=== PATIENT | female | born 1955 | race Caucasian/White ===

== ENCOUNTER 2019-05-04 00:36 | Day surgery (SDC) | payer OTHER, SELFPAY ==
[2019-04-27 14:40] VITALS: BMI 28.5
[2019-05-04] MEDS: LACTATED RINGERS 1,000 ML 150 ML IV CONT (09:25)
[2019-05-04 09:28] VITALS: BP 179/88; PULSE 72; RESP 16; TEMP 36.6; O2SAT 99
--- NOTE | 2019-05-04 09:50 | WPDANESEPPF ---
Anes - Initial Pre Proc Eval Procedure: Operation Date: 05/04/19 10:00 Proposed Procedures p Screening Colonoscopy - Trav Baez MD Date/Time: 05/04/19 09:50 Surgeon: Trav Baez MD Pre Op Diagnosis: Neoplasm Screening/ Fam Hx Colon Ca Patient Data Age: 63 Gender: F Height: 5 ft 3 in Weight: 74 kg Last Vital Signs Temp 97.9 F 05/04/19 09:28 Pulse 72 05/04/19 09:28 Resp 16 05/04/19 09:28 BP 179/88 H 05/04/19 09:28 Pulse Ox 99 05/04/19 09:28 Allergies Allergy/AdvReac Type Severity Reaction Status Date / Time morphine Allergy Unknown RASH, Verified 05/04/19 09:13 ITCHING Home Medications Medication Instructions Recorded Confirmed Type levothyroxine [Synthroid] 100 mcg PO DAILY 04/27/19 04/27/19 History lisinopril 20 mg PO DAILY 04/27/19 04/27/19 History omeprazole 20 mg PO DAILY 04/27/19 04/27/19 History simvastatin 40 mg PO DAILY 04/27/19 05/04/19 History Patient hx anesthesia problems: none Family hx anesthesia problems: none PMFSH Past Medical History Medical History (Updated 05/04/19 @ 09:49 by Jayajy Borja MD) Hyperlipidemia Hypertension Hypothyroid Family History Family History (Updated 09/30/15 @ 23:19 by DOCTOR UNKNOWN) Mother Hypertension Family history of elevated blood lipids Family history of malignant neoplasm of breast in first degree relative Father Family history of elevated blood lipids Carcinoma of colon Family history of diabetes mellitus in first degree relative Family history of coronary artery disease Patient's father is Sibling Patient's sister is Social History Social History Smoking status: Former smoker Second hand tobacco smoke exposure: No Smoking end date: 03/04/97 Alcohol intake: current Anes - Eval Final PreProcedure Day of Procedure 05/04/19 09:50 Patient weight: normal Heart: regular rate and rhythm Lungs: clear to auscultation Airway: Mallampati scale class II Neurological: alert and oriented Last oral intake: >/= 8 hours ASA classification: II Emergent: no Anesthetic plan: proceed Anesthesia type and monitoring: general GIVS and standard monitoring Informed Consent: The patient's anesthetic plan and its attendant risks and benefits were discussed with the patient/family/POA. Questions were solicited and answers provided to the satisfaction of the patient/family/POA.
--- NOTE | 2019-05-04 09:54 | WPDGICN ---
Assessment and Plan Additional Plan This is a 63-year-old white female patient seen in evaluation at the request of Dr. Mckeon. Patient is family history is significant her father had colon cancer. Her current weight appetite bowel movements are normal. She denies any blood in her stools. She denies abdominal pain. Past medical history is significant for hypertension, hypothyroidism, elevated cholesterol, and dyspepsia. Current medications include lisinopril, omeprazole, thyroid replacement, simvastatin, and calcium. \ She has no known medical allergies. Physical exam reveals her to be alert. Vital signs stable. HEENT exam unremarkable. Lungs are clear to auscultation and percussion. Heart is without murmur or extra sounds. Abdominal exam bowel sounds are present soft nontender with no hepatosplenomegaly. Digital external rectal exam is normal. Impression 1. Family history of colon cancer in her father. Plan is for screening colonoscopy now in consider this a 5 year intervals in the future. GI Consult Note Consult date/time: 05/04/19 09:54 HPI: lEvia Beltran is a 63 year old female [facility] Past Medical History Medical History (Updated 05/04/19 @ 09:49 by Jayjay Borja MD) Hyperlipidemia Hypertension Hypothyroid Family History Family History (Updated 09/30/15 @ 23:19 by DOCTOR UNKNOWN) Mother Hypertension Family history of elevated blood lipids Family history of malignant neoplasm of breast in first degree relative Father Family history of elevated blood lipids Carcinoma of colon Family history of diabetes mellitus in first degree relative Family history of coronary artery disease Patient's father is Sibling Patient's sister is Social History Social History Smoking status: Former smoker Second hand tobacco smoke exposure: No Smoking end date: 03/04/97 Alcohol intake: current Meds Home Medications and Allergies Home Medications Medication Instructions Recorded Confirmed Type levothyroxine [Synthroid] 100 mcg PO DAILY 04/27/19 04/27/19 History lisinopril 20 mg PO DAILY 04/27/19 04/27/19 History omeprazole 20 mg PO DAILY 04/27/19 04/27/19 History simvastatin 40 mg PO DAILY 04/27/19 05/04/19 History Allergies Allergy/AdvReac Type Severity Reaction Status Date / Time morphine Allergy Unknown RASH, Verified 05/04/19 09:13 ITCHING Vital Signs Vital Signs - 24 hr 03/02/20 09:28 Temperature 36.6 C Pulse Rate 72 Respiratory Rate 16 Blood Pressure 179/88 H Pulse Oximetry 99
[2019-05-04 10:24] VITALS: BP 131/76; PULSE 65; RESP 16; O2SAT 98
[2019-05-04 10:34] VITALS: BP 135/78; PULSE 61; RESP 14; O2SAT 98
[2019-05-04 10:44] VITALS: BP 147/89; PULSE 57; RESP 13; O2SAT 99
== END 2019-05-04 10:56 | disposition home or self-care (01) ==
PROVIDERS: PCP Internal Medicine; Visit Provider Internal Medicine Gastroenterology
PROC: 0DJD8ZZ Inspection of Lower Intestinal Tract, Via Natural or Artificial Opening Endoscopic (ICD-10-PCS; CPT 45378; principal; 2019-05-04 10:00)
DX: Z12.11 Encounter for screening for malignant neoplasm of colon (principal); K64.8 Other hemorrhoids; Z80.0 Family history of malignant neoplasm of digestive organs; I10 Essential (primary) hypertension; E03.9 Hypothyroidism, unspecified; E78.5 Hyperlipidemia, unspecified; Z87.891 Personal history of nicotine dependence
CPT/HCPCS: 45378; J2704; J7120

== ENCOUNTER 2020-01-19 13:52 | Outpatient (CLI) | payer OTHER, SELFPAY ==
--- NOTE | ~2020-01-19 | XR_ITS ---
EXAMINATION: XR chest 2V EXAM DATE: 01/19/2020 14:10 INDICATION: R05 - Cough X 3 WKS, HBP, SOB . TECHNIQUE: Frontal and lateral projections of the chest obtained and reviewed. Comparison is made to prior examination from 02/28/2015. FINDINGS: Small left lower lung zone reticulonodular opacities, could be small amount of acute infect ion or postinfectious residua. This is new compared to previous examination. Consider one-month follo w-up exam to document resolution. The lungs are otherwise clear. There are no pleural effusions. Th e cardiomediastinal silhouette is within normal limits. There is no pneumothorax suspected. The bon es and soft tissues are unremarkable. IMPRESSION: No acute cardiopulmonary findings. Reviewed, dictated and finalized at location A. TECHNICIAN
== END 2020-01-19 13:53 | disposition home or self-care (01) ==
LOC: ANHIMG 13:58
PROVIDERS: PCP Internal Medicine; Visit Provider Physician Assistant
DX: R05 Cough (principal); I10 Essential (primary) hypertension; R06.02 Shortness of breath
CPT/HCPCS: 71046

== ENCOUNTER 2020-10-20 13:32 | Outpatient (CLI) | payer OTHER, SELFPAY ==
--- NOTE | ~2020-10-20 | DEXA_ITS ---
Bone Density Report Name: Elvia Beltran Age: 65 Sex: Female Ethnicity: White Date of : 1955 Indication: osteopenia; height loss; rheumatoid arthritis; postmenopausal Referring Provider: IVORY HERNANDEZ Study: Bone densitometry was performed. Exam Date: October 20, 2020 Accession number: [id number] Bone Density: Region BMD T-score Z-score Classification AP Spine (L1-L4) 0.928 -1.1 0.7 Osteopenia Femoral Neck (Left) 0.759 -0.8 0.7 Normal Total Hip (Left) 0.966 0.2 1.4 Normal Total Hip Bilateral Avg 0.957 0.1 1.4 Normal Femoral Neck (Right) 0.717 -1.2 0.3 Osteopenia Total Hip (Right) 0.946 0.0 1.3 Normal World Health Organization criteria for BMD impression classify patients as: Normal (T-score at or above -1.0), Osteopenia (T-score between -1.0 and -2.5), or Osteoporosis (T-score at or below -2.5). 10-year Fracture Risk(1): Major Osteoporotic Fracture 10% Hip Fracture 0.9% Reported Risk Factors: [place] (), Neck BMD=0.717, BMI=30.7, rheumatoid arthritis (1) FRAX(R) Version 3.08. Fracture probability calculated for an untreated patient. Fracture probability may be lower if the patient has received treatment. Previous Exams: Region Exam Age BMD T-score BMD Change BMD Change Date g/cm2 vs Baseline vs Previous AP Spine(L1-L4) 10/20/2020 65 0.928 -1.1 -0.007(-0.7%)# 0.075(8.8%)* 06/30/2016 60 0.852 -1.8 -0.082(-8.8%)# -0.082(-8.8%)# 08/01/2010 54 0.934 -1.0 Total Hip(Left) 10/20/2020 65 0.966 0.2 0.057(6.3%)# 0.073(8.1%)* 06/30/2016 60 0.894 -0.4 -0.016(-1.7%)# -0.016(-1.7%)# 08/01/2010 54 0.909 -0.3 Total Hip(Right) 10/20/2020 65 0.946 0.0 0.017(1.8%)# 0.055(6.2%)* 06/30/2016 60 0.891 -0.4 -0.038(-4.1%)# -0.038(-4.1%)# 08/01/2010 54 0.929 -0.1 *Denotes significance at 95% confidence level, LSC for AP Spine = 0.022 g/cm2, LSC for Total Hip = 0.027 g/cm2 Clinical Information Provided by Patient: Has rheumatoid arthritis Has used the following medications: Vitamin D, Calcium Patient maximum height was 63 Menopause Age: 35 Drinks caffeinated beverages Onset of menses at age 17 Number of children 4 Impression: The patient has low bone mass, based on the Right Femoral Neck T-score. The patient has an estimated ten-year risk of hip fracture of 0.9% and an estimated ten-year risk of major fracture of 10%, based on the WHO FRAX algorithm. No significant bone loss was o
--- NOTE | ~2020-10-20 | MM_ITS ---
EXAMINATION: MM screening [facility] BI w estefania HISTORY: Screening mammogram TECHNIQUE: Craniocaudal and mediolateral oblique 3-D tomosynthesis images were obtained and synthetic 2-D images were generated. CAD analysis was submitted and interpreted. COMPARISON: 06/03/2017, 06/30/2016, 06/01/2014, 05/22/2014 BREAST PARENCHYMAL COMPOSITION: There are scattered areas of fibroglandular density. FINDINGS: There is interval decrease in size of a previously characterized left breast cyst. There is no evidence of suspicious mass, calcification, or architectural distortion to suggest malignancy in either breast. There has been no suspicious interval change. IMPRESSION: 1. No mammographic evidence of malignancy. 2. Recommend routine screening mammography in one year. BI-RADS Category 2: Benign finding(s). Reviewed, dictated and finalized at location A.
== END 2020-10-20 13:33 | disposition home or self-care (01) ==
LOC: ANHIMG 13:35
PROVIDERS: PCP Internal Medicine; Visit Provider Obstetrics & Gynecology
DX: Z12.31 Encounter for screening mammogram for malignant neoplasm of breast (principal); Z78.0 Asymptomatic menopausal state; M85.89 Other specified disorders of bone density and structure, multiple sites
CPT/HCPCS: 77063; 77067; 77080

== ENCOUNTER 2021-05-01 12:52 | Emergency (ER) | payer OTHER, SELFPAY ==
--- NOTE | ~2021-05-01 | XR_ITS ---
XR elbow RT min 3V 05/01/2021 13:38 INDICATION: Right elbow pain PROCEDURE: 4 views right elbow COMPARISON: No prior studies for comparison. FINDINGS: Fracture, dislocation or subluxation is not identified. No significant joint effusion. The soft tissues appear within normal limits. No foreign bodies are identified. IMPRESSION: 1: NO ACUTE BONE OR JOINT ABNORMALITY IDENTIFIED. Reviewed, dictated and finalized at location A. HIC EDITOR
[2021-05-01 13:19] VITALS: BP 153/93; PULSE 80; RESP 18; TEMP 36.7; O2SAT 98
--- NOTE | 2021-05-01 13:30 | ED.UPPEXIN ---
HPI - Extremity Injury (Upper) General Chief Complaint: Extremity Injury, Upper Stated Complaint: work injury Time Seen by Provider: 05/01/21 13:40 Source: patient, RN notes reviewed and old records reviewed Mode of arrival: ambulatory Limitations: no limitations History of Present Illness HPI narrative: 65-year-old female [facility] of right elbow pain after fall 5 days ago. 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 Was assisted up from the floor and finished working that day. Has become more sore within the last 5 days. Right elbow bruised and slightly edematous. Reports numbness in fingers with certain movements. Right shoulder is tender with movement. Right hip is tender and sore, muscles hurt with movement flexing and extending right ankle. Has been taking Aleve. Has not applied ice. MD complaint: injury to: right, shoulder and elbow Related Data Home Medications Medication Instructions Recorded Confirmed alendronate 70 mg tablet 70 mg PO ONCE tablet 08/17/20 03/31/21 multivitamin 1 tablet PO DAILY 08/17/20 03/31/21 lisinopril 40 mg PO DAILY 05/01/21 05/01/21 Allergies Allergy/AdvReac Type Severity Reaction Status Date / Time carvedilol Allergy Severe Hives Verified 05/01/21 13:30 morphine Allergy Unknown RASH, Verified 05/01/21 13:30 ITCHING Review of Systems Review of Systems: CONSTITUTIONAL: Denies fever, chills, or sweats. EYES: Denies visual changes, redness, or discharge. ENT: Denies rhinorrhea, congestion, sore throat, or otalgia. CARDIOVASCULAR: Denies chest pain, palpitations, or edema. RESPIRATORY: Denies cough or dyspnea. GASTROINTESTINAL: Denies abdominal pain, nausea, vomiting, or diarrhea. GENITOURINARY: Denies dysuria or hematuria. SKIN: Denies rash or itching. MUSCULOSKELETAL: Right shoulder, elbow, and hip soreness. Right elbow bruising and mildly swollen. NEUROLOGIC: Denies headache, numbness, or weakness. PSYCHIATRIC: Denies anxiety or depression. All other systems reviewed are negative, except as documented in HPI. [facility] Past Medical History Medical History Acid reflux Hyperlipidemia Hypertension Hypothyroid Surgical History Surgical History H/O hernia repair H/O tubal ligation History of appendectomy [place] teeth removed Family History Family History Mother Hypertension Family history of elevated blood lipids Family history of malignant neoplasm of breast in first degree relative Father Family history of elevated blood lipids Carcinoma of colon Family history of diabetes mellitus in first degree relative Family history of coronary artery disease Patient's father is Sibling Patient's sister is Social History Social History Smoking packs per day: 4 Smoking cigarettes per day: 80.0 Years smoked: 20 Smoking pack-years: 80.00 Smoking status: Former smoker Second hand tobacco smoke exposure: No Smoking end date: 03/04/97 Alcohol intake: current Comments At the time of my signature, I reviewed and agree with the nursing past medical, surgical, social, and family history. There is no relevant family history pertinent to the patient complaint. Exam Narrative: GENERAL: This is a well-nourished, well-developed female, in no apparent distress. Pleasant, cooperative, casually dressed. HEAD: normocephalic, atraumatic. EYES: Sclera clear/white. Vision is grossly intact. EARS: External ears normal, auditory canals clear and without drainage, hearing grossly intact. NOSE: External nose normal with no obvious nasal discharge, nares without redness, no rhinorrhea. THROAT: Mucous membranes moist. N
[2021-05-01 14:07] VITALS: BP 149/86
== END 2021-05-01 14:07 | disposition home or self-care (01) ==
PROVIDERS: Emergency Provider Nurse Practitioner Family; PCP Internal Medicine
DX: S50.01XA Contusion of right elbow, initial encounter (principal); W01.0XXA Fall on same level from slipping, tripping and stumbling without subsequent striking against object, initial encounter; Y99.0 Civilian activity done for income or pay; K21.9 Gastro-esophageal reflux disease without esophagitis; E78.5 Hyperlipidemia, unspecified; I10 Essential (primary) hypertension; E03.9 Hypothyroidism, unspecified
CPT/HCPCS: 73080; 99213; G0463

== ENCOUNTER 2021-06-29 07:31 | Observation (INO) | payer OTHER, SELFPAY ==
[2021-06-29] VITALS (24 sets, daily range): BP systolic 147–202; BP diastolic 79–99; PULSE 60–80; RESP 13–20; TEMP 36.4–36.6; O2SAT 95–99; BMI 29.2
--- NOTE | 2021-06-29 | EST_ITS ---
Patient Info Name: Elvia Beltran Age: 65 years : 1955 Gender: Female Ht: 63 in Wt: 165 lbs BSA: 1.85 m2 Exam Date: 06/30/2021 11:44 AM Exam Location: [facility] Stress Patient Status: Inpatient Admit Date: 06/29/2021 Staff Ordering Physician: Latia Jasso Attending Provider: Wendy Reyes MD Exercise Technologist: Carli Hill RDCS Nurse: latia jasso np Exam Type: CA stress loly w NM Study Info Indications R07.9 - Chest pain, unspecified A regadenoson stress test was performed. Summary 1. Normal sinus rhythm - normal ECG. 2. No abnormal ST or T-wave changes following Lexiscan injection. 3. Clinically and electrocardiographically uneventful Lexiscan stress test. 4. Myocardial perfusion imaging exam to be reported by Radiology. Protocol: Lexiscan Stress ECG Details Stage: REST Duration (min): 2 min : 13 sec HR (bpm): 74 SBP (mmHg): 197 DBP (mmHg): 99 Stage: REST Duration (min): 5 min : 28 sec HR (bpm): 76 SBP (mmHg): 197 DBP (mmHg): 99 Stage: STAGE 1 Duration (min): 1 min : 0 sec HR (bpm): 101 SBP (mmHg): 197 DBP (mmHg): 99 Stage: RECOVERY Duration (min): 1 min : 0 sec HR (bpm): 109 SBP (mmHg): 185 DBP (mmHg): 97 Stage: RECOVERY Duration (min): 2 min : 0 sec HR (bpm): 102 SBP (mmHg): 185 DBP (mmHg): 97 Stage: RECOVERY Duration (min): 3 min : 0 sec HR (bpm): 94 SBP (mmHg): 174 DBP (mmHg): 98 Stage: RECOVERY Duration (min): 3 min : 10 sec HR (bpm): 94 SBP (mmHg): 174 DBP (mmHg): 98 Rest HR: 76 bpm Peak HR: 110 bpm Rest Sys BP: 197 mmHg Peak Sys BP: 185 mmHg Max Pred HR: 155 bpm % Max Pred HR: 71 % Target HR: 132 bpm Max RPP: 20,350 bpm*mmHg Termination Reason: Completed protocol Cardiac Symptoms: None Total Time: 1 min : 0 sec Rest Parra BP: 99 mmHg Peak Parra BP: 97 mmHg Total Dose: 0.4 mg Resting ECG Normal sinus rhythm - normal ECG. Stress ECG No abnormal ST or T-wave changes following Lexiscan injection. Report Signatures
--- NOTE | ~2021-06-29 | XR_ITS ---
EXAMINATION: XR chest 2V DATE: 06/29/2021 07:56 INDICATION: Left chest pain. TECHNIQUE: Frontal and lateral views of the chest were obtained. COMPARISON: Chest 2 views 01/19/2020 FINDINGS: There is mild scarring at the lung apices. No pleural effusion or pneumothorax. The heart s ize is normal. There are surgical clips in right abdomen. IMPRESSION: 1. Stable mild scarring at the lung apices. Reviewed, dictated and finalized at location A.
--- NOTE | ~2021-06-29 | NM_ITS ---
EXAMINATION: NM loly stress w perfusion DATE: 06/30/2021 12:48 INDICATION: Chest pain. TECHNIQUE: Rest images were obtained following intravenous administration of 9.9 mCi Tc99m tetrofosmi n (Myoview). The patient was infused intravenously with Lexiscan (regadenoson). Then, 32.1 mCi Tc99m tetrofosmin (Myoview) was administered intravenously, and stress images were obtained. Data was recon structed into short axis and horizontal and vertical long axis SPECT images. Gated SPECT images were also obtained. COMPARISON: Chest CT 06/29/2021 FINDINGS: There is no definite reversible or fixed perfusion abnormality to suggest ischemia or infar ction. There is no segmental wall motion abnormality. Left ventricular ejection fraction measures > 70%. IMPRESSION: 1. No definite ischemia or infarct. 2. Normal left ventricular ejection fraction measuring >70%. Reviewed, dictated and finalized at location A.
--- NOTE | ~2021-06-29 | CT_ITS ---
EXAMINATION: CTA chest DATE: 06/29/2021 20:45 INDICATION: Chest pain radiating to the back TECHNIQUE: Computed tomographic angiography (CTA) of the chest was performed with 100 mL Omnipque-350 intravenous contrast. Maximum intensity projection 3D-reconstructions of the aorta and other arterie s were constructed by the technologist on a separate workstation. The dose-length product (DLP) was 4 02.54 mGy-cm. Automated exposure control and iterative reconstruction technique were employed. COMPARISON: None. FINDINGS: The thoracic aorta is normal without aneurysm or dissection. There is moderate emphysema. T he lungs are free of acute opacities. There is no pleural effusion or pneumothorax. No pathologically enlarged thoracic lymph nodes are identified. The heart size is normal. Although not specifically ti me for evaluation of the pulmonary arteries, no pulmonary embolus is identified. There is mild thorac ic spondylosis. IMPRESSION: 1. Normal thoracic aorta without aneurysm or dissection. No acute cardiopulmonary abnormality. Reviewed, dictated and finalized at location F. IMPRESSION: 1. Normal thoracic aorta without aneurysm or dissection. No acute cardiopulmona ry abnormality.
--- NOTE | 2021-06-29 07:43 | ECG_ITS ---
Measurements Intervals [place] Rate: 73 P: 53 OR: 154 QRS: 27 QRSD: 85 T: 48 QT: 371 QTc: 410 Interpretive Statements SINUS RHYTHM NO PREVIOUS ECG AVAILABLE FOR COMPARISON Electronically Signed On 06-29-2021 20:49:00 CDT by Karina Ballard M.D.
--- NOTE | 2021-06-29 07:49 | ED.CHESTPAIN ---
HPI - Chest Pain General Chief Complaint: Chest Pain Stated Complaint: CP Time Seen by Provider: 06/29/21 07:42 Source: patient Mode of arrival: ambulatory Limitations: no limitations History of Present Illness HPI narrative: Patient is a 65-year-old female complaining of chest pain, midsternal, was 8 out of 10, currently down to 2 out of 10, pressure, radiating to her jaw that started this morning while walking. Patient denies any shortness of breath, abdominal pain, nausea, vomiting, diaphoresis, fever or chills. Related Data Home Medications Medication Instructions Recorded Confirmed alendronate 70 mg tablet 70 mg PO WEEKLY tablet 08/17/20 05/01/21 multivitamin 1 tablet PO DAILY 08/17/20 05/01/21 lisinopril 40 mg PO DAILY 05/01/21 05/01/21 Allergies Allergy/AdvReac Type Severity Reaction Status Date / Time carvedilol Allergy Severe Hives Verified 05/01/21 13:30 morphine Allergy Unknown RASH, Verified 05/01/21 13:30 ITCHING Review of Systems Review of Systems: All systems reviewed & are unremarkable except as noted in HPI and below Constitutional: Constitutional: Denies body ache(s), Denies chills, Denies excessive sweating, Denies fatigue, Denies fever(s), Denies headache(s), Denies lethargy, Denies malaise, Denies weakness and Denies weight loss Eyes: Eyes: Denies blurry vision, Denies change in vision and Denies loss of vision ENT: Denies dizziness, Denies ear discharge, Denies headache(s), Denies lip swelling, Denies epistaxis, Denies nasal congestion, Denies neck pain, Denies throat swelling and Denies tongue swelling Cardiovascular: Cardiovascular: Denies diaphoresis, Denies rapid heart rate, Denies edema, Denies irregular heart rhythm, Denies lightheadedness, Denies palpitations, Denies dyspnea and Denies dyspnea on exertion Respiratory: Respiratory: Denies chest congestion, Denies cough, Denies hemoptysis, Denies dyspnea and Denies dyspnea on exertion Gastrointestinal: Gastrointestinal: Denies abdominal pain, Denies melena, Denies hematochezia, Denies diarrhea, Denies nausea, Denies vomiting and Denies hematemesis Musculoskeletal: Musculoskeletal: Denies abnormal gait, Denies deformity, Denies joint swelling, Denies limited range of motion, Denies neck pain and Denies numbness Neurologic: Denies Abnormal speech present, Denies abnormal gait, Denies confusion, Denies dizziness, Denies headache(s), Denies focal weakness, Denies loss of vision, Denies numbness, Denies Other visual disturbances, Denies Sensory deficit (Neuro) and Denies weakness Psychiatric: Psychiatric: Denies confusion, Denies depression, Denies auditory hallucinations, Denies homicidal ideation and Denies suicidal ideation Endocrine: Endocrine: Denies cold intolerance, Denies excessive sweating, Denies fatigue, Denies heat intolerance and Denies palpitations Hematologic/Lymphatic: Hematologic/Lymphatic: Denies easy bleeding and Denies easy bruising Allergic/Immunologic: Allergic/Immunologic: Denies lip swelling, Denies throat swelling and Denies tongue swelling PMFSH Past Medical History Medical History Acid reflux Hyperlipidemia Hypertension Hypothyroid Surgical History Surgical History H/O hernia repair H/O tubal ligation History of appendectomy [place] teeth removed Family History Family History Mother Hypertension Family history of elevated blood lipids Family history of malignant neoplasm of breast in first degree relative Father Family history of elevated blood lipids Carcinoma of colon Family history of diabetes mellitus in first degree relative Family history of coronary artery disease Patient's father is Sibling Patient's sister is Social History Social History (Reviewed 06/29/21 @ 07:55 by Koby Tsang
[2021-06-29 07:53] LABS: Basophils Absolute Auto 0.1 K/mm3 (0.0-0.1); Basophils Percent Auto 1.1 % (0.2-1.2); Eosinophils Absolute Auto 0.2 K/mm3 (0-0.3); Eosinophils Percent Auto 2.7 % (0-4.4); Hematocrit 42.6 % (37.0-47.0); Hemoglobin 14.2 g/dL (12.0-15.0); Immature Granulocyte Absolute 0.02 K/mm3 (0.00-0.031); Immature Granulocyte Percent A 0.4 % (0-0.5); Lymphocytes Absolute Auto 1.82 K/mm3 (0.9-3.2); Lymphocytes Percent Auto 32.7 % (18.3-44.2); Mean Corpuscular HGB Conc 33.3 g/dl (32-36); Mean Corpuscular Hemoglobin 30.9 pg (26-34); Mean Corpuscular Volume 92.6 fl (80-100); Mean Platelet Volume 9.8 fl (7.4-10.4); Monocytes Absolute Auto 0.5 K/mm3 (0.1-0.6); Monocytes Percent Auto 8.3 % (2.6-8.5); Neutrophils Absolute Auto 3.1 K/mm3 (1.3-6.7); Neutrophils Percent Auto 54.8 % (45.5-73.1); Platelet Count Result 231 k/mm3 (150-375); Red Cell Distribution Width 12.7 % (11.5-14.5); White Blood Count 5.6 K/mm3 (4.5-10.0)
[2021-06-29] MEDS: ASPIRIN 81 MG CHEWABLE TABLET 324 MG PO (08:02)
[2021-06-29 08:07] LABS: Alanine Aminotransferase 20 U/L (4-35); Albumin Level 4.6 g/dL (3.5-5.1); Alkaline Phosphatase 92 U/L (38-126); Anion Gap 6 mmol/L (8-16); Aspartate Amino Transferase 26 U/L (14-36); Bilirubin,Total 0.9 mg/dL (0.2-1.3); Blood Urea Nitrogen 17 mg/dL (7-17); Carbon Dioxide 27 mmol/L (22-30); Chloride 105 mmol/L (98-107); Estimated CRCL calculation 59 ml/min; Estimated Glomerular Filt Rate > 60; Glucose 97 mg/dL (65-110); Lipase 88 U/L (23-300); Sodium 138 mmol/L (137-145)
[2021-06-29 08:19] LABS: Troponin I < 0.012 ng/mL (0.000-0.034)
[2021-06-29 08:24] LABS: Prothrombin Time 13.2 Seconds (11.1-14.7)
[2021-06-29 08:26] LABS: Partial Thromboplastin Time 24.3 SECONDS (22.3-36.8)
[2021-06-29] MEDS: NITROGLYCERIN OINTMENT 1 INCH DOSE TRANSDERM (09:52)
[2021-06-29 10:55] LABS: Troponin I < 0.012 ng/mL (0.000-0.034)
--- NOTE | 2021-06-29 11:21 | PC.NURSE ---
Removed nitro paste. Patient reports headache, denies any chest pain.
--- NOTE | 2021-06-29 11:51 | ADMGEN ---
This patient, Elvia Beltran, was admitted to 3 Medical Room 340-01. Patient/family oriented to hospital policies and general routines including ID bracelet, bed and alarms, visiting hours, pain management, procedures, bathroom and other care routines, personal items, smoking policy, room service/diet, and visiting hours. Information on how to activate the Rapid Response Team has been discussed. Patient/Family are encouraged to report perceived risks to care and to ask questions if they do not understand what they are told or what they should do.
--- NOTE | 2021-06-29 13:45 | PM.IMHP ---
H&P: HPI History of Present Illness Date/Time: 06/29/21 13:45 <Kati Arzate PA-C - Last Filed: 06/29/21 20:16> Chief Complaint: Chest pain. <Kati Arzate PA-C - Last Filed: 06/29/21 20:16> Narrative: This is a very pleasant 65-year-old female with hypertension, dyslipidemia, hypothyroidism, and gastroesophageal reflux disease who presented to the emergency department from home for evaluation of chest pain. She has been unusually tired and fatigued the last several months and initially she thought perhaps it was related to anemia so she started taking her iron supplementation again within the last week or so. At work yesterday she fell asleep while sitting in the break room which is highly unusual for her. 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 Associated symptoms included lightheadedness, anxiety, sweats, and mild shortness of breath. She had never had similar symptoms in the past and after speaking with the school nurse she came in for evaluation. Blood pressure was high on arrival (202/99) which is atypical for her however she does admit that she was quite anxious at that time. EKG was personally reviewed and showed a sinus rhythm with normal axis and no acute ST segment changes. Her initial troponin was negative though given her risk factor she is being admitted overnight. At the time my evaluation she endorses intermittent aching in her shoulders but nothing significant. She has no history of coronary artery disease and reports having a negative stress test done about 12 years ago after her sister from an acute DC at age of 45. The patient's father also had history of coronary artery disease in his early 50s. <Kati Arzate PA-C - Last Filed: 06/29/21 20:16> Review of Systems Review of Systems: Twelve systems were reviewed. No syncope or near syncope. She does get hot flashes and occasional sweats with that. No recent cold or flu symptoms. No history of or concerns for sleep apnea though she admits that she has not been sleeping well recently. She denies significant snoring. has not noticed any apneic episodes. She does wake up at times with very odd, vivid dreams. No pleuritic pain or palpitations. No orthopnea, PND, or lower extremity edema. She denies nausea and vomiting. Except as documented, all other systems were reviewed and are negative. <Kati Arzate PA-C - Last Filed: 06/29/21 20:16> [facility] Past Medical History Medical History: Medical History (Updated 06/29/21 @ 20:12 by Kati Arzate PA-C) Gastroesophageal reflux disease Hyperlipidemia Hypertension Hypothyroidism <Kati Arzate PA-C - Last Filed: 06/29/21 20:16> Surgical History Surgical History: Surgical History (Updated 06/29/21 @ 20:12 by Kati Arzate PA-C) History of appendectomy History of benign breast biopsy History of endometrial ablation History of tubal ligation History of ventral hernia repair History of wisdom tooth extraction <Kati Arzate PA-C - Last Filed: 06/29/21 20:16> Family History Family History: Family History Mother Family history of elevated blood lipids Family history of malignant neoplasm of breast in first degree relative Hypertension Father Family history of elevated blood lipids Family history of diabetes mellitus in first degree relative Patient's father is Family history of coronary artery disease Carcinoma of colon Sibling Patient's sister is Heart attack <Kati Arzate PA-C - Last Filed: 06/29/21 20:16> Social History Social History: Social History (Updated 06/29/21 @ 20
[2021-06-29 14:12] LABS: Troponin I < 0.012 ng/mL (0.000-0.034)
--- NOTE | 2021-06-29 14:40 | PM.CNCAR ---
Assessment and Plan Assessment and plan (1) Chest pain: Code(s): R07.9 - Chest pain, unspecified <Olivia CarreraLibby LIDYA Jasso - Last Filed: 06/29/21 15:54> Status: Acute <Olivia RiverLIDYA solomon - Last Filed: 06/29/21 15:54> Assessment and Plan: Episode of neck/shoulder pain with some radiation to her chest that occurred this morning while she was at work. Her chest pain is atypical. No objective evidence of ACS with negative biomarkers and EKG showing no signs of acute ischemia. Probably noncardiac chest pain. However, she does have some risk factors for coronary artery disease. We will proceed with a Lexiscan stress test in the morning to rule out any ischemia <LIDYA Hyde - Last Filed: 06/29/21 15:54> (2) Hypertension: Code(s): I10 - Essential (primary) hypertension <LIDYA Hyde - Last Filed: 06/29/21 15:54> Status: Chronic <LIDYA Hyde - Last Filed: 06/29/21 15:54> Assessment and Plan: Above goal. Will add amlodipine <LIDYA Hyde - Last Filed: 06/29/21 15:54> (3) Hyperlipidemia: Code(s): E78.5 - Hyperlipidemia, unspecified <LIDYA Hyde - Last Filed: 06/29/21 15:54> Status: Acute <LIDYA Hyde - Last Filed: 06/29/21 15:54> Assessment and Plan: On statin. 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 She felt very dizzy and slid down the wall and sat. She was profusely diaphoretic and and also complained of some shortness of breath. After about 15 minutes the intense discomfort subsided but there was more persistent tightness and bad heartburn in the substernal region radiating to the back. When she went to see the school nurse her diastolic blood pressure was 130 and the nurse insisted she come to the emergency room. In general her blood pressures been well controlled and she has been compliant with her medications. O: Physical exam: BP 202/99 on admission, now 147/79 mmHg General: Sitting in bed, no distress SHEENT: Extraocular muscles intact Cardiac: Regular rate and rhythm, no murmurs or gallops Lungs: Distant breath sounds, clear to auscultation, no respiratory distress Abdomen: Soft and nontender Extremities: No edema, intact pedal pulses Skin: No lesions noted. Musculoskeletal: Some tenderness of the right trapezius area Neurologic: Alert and oriented, moved all extremities Psychiatric: Normal affect EKG personally reviewed, normal sinus rhythm and no ischemia Chest x-ray also personally reviewed, normal appearing aorta, normal heart size Troponins were normal Assessment: Atypical chest pain. Agree with nurse practitioner Louisa's assessment and plan. However, I think the patient's symptoms are also consistent with aortic dissection which is unlikely but we should to evaluate further Uncontrolled hypertension Plan: CT of the chest to rule out aortic dissection Lexiscan tomorrow Increase blood pressure meds I spent 25 minutes evaluating the patient, her EMR, and counseling the patient and provided a substantial input into her care. Otto Ballard MD <Karina Ballard MD - Last Filed: 06/29/21 20:21> History of Present Illness History of Present Illness Consult date/time: 06/29/21 14:40 Ms. Beltran Is a 65-year-old female with a medical history of hypertension, hyperlipidemia GERD, and she is a former smoker. She presented to the emergency department with a complaint of neck and jaw pain that occurred while she was at work this morning. Speedy
--- NOTE | 2021-06-29 20:31 | PCDIET ---
pt transport to radiology via wheelchair at this time. Consent signed and given to transporter.
--- NOTE | 2021-06-29 20:45 | PC.NURSE ---
pt return from CT.
[2021-06-29] MEDS: SIMVASTATIN 20 MG TABLET 40 MG PO (21:05)
[2021-06-30] VITALS (7 sets, daily range): BP systolic 149–182; BP diastolic 70–88; PULSE 61–95; RESP 18; TEMP 36.1; O2SAT 97
[2021-06-30] MEDS: LEVOTHYROXINE SODIUM 100 MCG TABLET PO (05:58)
[2021-06-30 06:03] LABS: Anion Gap 8 mmol/L (8-16); Blood Urea Nitrogen 15 mg/dL (7-17); Calcium 9.1 mg/dL (8.4-10.2); Carbon Dioxide 25 mmol/L (22-30); Chloride 104 mmol/L (98-107); Estimated CRCL calculation 59 ml/min; Estimated Glomerular Filt Rate > 60; Glucose 104 mg/dL (65-110); Magnesium 2.3 mg/dL (1.6-2.3); Potassium 4.3 mmol/L (3.4-5.0); Sodium 137 mmol/L (137-145)
[2021-06-30] MEDS: lisinopriL 20 MG TABLET 40 MG PO (08:17)
[2021-06-30] MEDS: PANTOPRAZOLE 40 MG TABLET PO (08:18)
[2021-06-30] MEDS: FERROUS SULFATE 324 MG TABLET PO (08:18)
[2021-06-30] MEDS: MULTIVITAMINS THERAPEUTIC TAB (*BKC) 1 TABLET PO (08:18)
[2021-06-30] MEDS: amLODIPine BESYLATE 5 MG TABLET PO (08:18)
[2021-06-30] MEDS: ACETAMINOPHEN 325 MG TABLET 650 MG PO (09:36)
--- NOTE | 2021-06-30 13:11 | PM.DS ---
DS: Admitting Diagnosis Discharge Date 06/30/2021 Admitting Diagnosis Chest pain DS: Discharge Diagnosis Discharge Diagnosis (1) Chest pain: Code(s): R07.9 - Chest pain, unspecified Status: Acute Assessment and Plan: She has rule out for acute coronary syndrome by serial troponins in her initial EKG showed no findings suspicious for ischemia. Given her risk factors and family history, stress test has been ordered for a.m. (2) Hypertension: Code(s): I10 - Essential (primary) hypertension Status: Chronic Assessment and Plan: Blood pressure was 202/99 arrival to the ER but she reports being very anxious at that time. Her numbers have improved though remains somewhat elevated. For now will continue her antihypertensives including amlodipine and lisinopril, and make adjustments accordingly depending on how she trends. (3) Hyperlipidemia: Code(s): E78.5 - Hyperlipidemia, unspecified Status: Acute Assessment and Plan: Continue simvastatin; LFTs within normal limits. (4) Hypothyroidism: Code(s): E03.9 - Hypothyroidism, unspecified Status: Acute Assessment and Plan: Continue levothyroxine and check TSH. (5) Gastroesophageal reflux disease: Code(s): K21.9 - Gastro-esophageal reflux disease without esophagitis Status: Acute Assessment and Plan: No acute issues. Continue pantoprazole. DS: Summary Hospital Course Reason for hospitalization: Chief Complaint: Chest pain. <Kati Arzate PA-C - Last Filed: 06/29/21 20:16> Narrative: This is a very pleasant 65-year-old female with hypertension, dyslipidemia, hypothyroidism, and gastroesophageal reflux disease who presented to the emergency department from home for evaluation of chest pain. She has been unusually tired and fatigued the last several months and initially she thought perhaps it was related to anemia so she started taking her iron supplementation again within the last week or so. At work yesterday she fell asleep while sitting in the break room which is highly unusual for her. 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 Associated symptoms included lightheadedness, anxiety, sweats, and mild shortness of breath. She had never had similar symptoms in the past and after speaking with the school nurse she came in for evaluation. Blood pressure was high on arrival (202/99) which is atypical for her however she does admit that she was quite anxious at that time. EKG was personally reviewed and showed a sinus rhythm with normal axis and no acute ST segment changes. Her initial troponin was negative though given her risk factor she is being admitted overnight. At the time my evaluation she endorses intermittent aching in her shoulders but nothing significant. She has no history of coronary artery disease and reports having a negative stress test done about 12 years ago after her sister from an acute [place] at age of 45. The patient's father also had history of coronary artery disease in his early 50s. Hospital Course: 65-year-old female presented with chest pain seen by cardiology suspect atypical chest pain as patient 3 sets of cardiac enzymes are negative [place], there are no acute changes on EKG, to further evaluate patient had a Lexiscan test for essentially normal, patient is clinically stable will discharge the patient today Status at Discharge Functional status at discharge: independent ambulation Overall status at discharge: patient is back to baseline Time Spent with Patient Time attestation: Total time spent providing and/or coordinating discharge services: Patient was seen and examined at the time of the discharge Condition at discha
--- NOTE | 2021-06-30 13:53 | PM.PNCARD ---
Progress Note: A&P Assessment and Plan (1) Chest pain: Code(s): R07.9 - Chest pain, unspecified Status: Acute Assessment and Plan: Episode of neck/shoulder pain with some radiation to her chest that occurred this morning while she was at work. Her chest pain is atypical. No objective evidence of ACS with negative biomarkers and EKG showing no signs of acute ischemia. Probably noncardiac chest pain. Lexiscan stress test performed this morning which did not show and ischemia or infarct, EF 70%. OK for discharge from a cardiac standpoint. (2) Hypertension: Code(s): I10 - Essential (primary) hypertension Status: Chronic Assessment and Plan: Amlodipine added. Medications can be further adjusted by PCP. (3) Hyperlipidemia: Code(s): E78.5 - Hyperlipidemia, unspecified Status: Acute Assessment and Plan: On statin. Subjective Date/time seen: 06/30/21 13:53 Cardiology follow up for chest pain Feels fine today. No recurrence of chest pain. Only complaint is a headache. Review of Systems Constitutional: Constitutional: Reports excessive sweating (hot flashes ), Denies fatigue, Denies headache(s), Denies lethargy and Denies weakness Eyes: Eyes: Denies blurry vision and Denies change in vision ENT: Reports Normal hearing present, Denies headache(s), Denies lip swelling and Denies neck pain Cardiovascular: Cardiovascular: Denies chest pain, Denies diaphoresis, Denies pedal edema, Denies leg edema, Denies lightheadedness, Denies palpitations, Denies dyspnea and Reports dyspnea on exertion Respiratory: Respiratory: Denies cough, Denies dyspnea and Reports dyspnea on exertion Gastrointestinal: Gastrointestinal: Denies abdominal pain, Denies constipation and Denies diarrhea Genitourinary: Genitourinary: Denies hematuria, Denies dysuria and Denies urinary urgency Musculoskeletal: Musculoskeletal: Denies back pain, Denies myalgias, Denies joint swelling and Denies neck pain Integumentary/Breasts: Skin/Breast: Reports dry skin and Reports pruritus Neurologic: Reports Normal hearing present, Denies headache(s) and Denies weakness Psychiatric: Psychiatric: Denies anxiety and Denies depression Endocrine: Endocrine: Reports excessive sweating (hot flashes ), Denies fatigue, Denies flushing and Denies palpitations Hematologic/Lymphatic: Hematologic/Lymphatic: Denies easy bleeding and Denies easy bruising Allergic/Immunologic: Allergic/Immunologic: Denies GI upset with certain foods and Denies lip swelling Exam Const: General: comfortable and no acute distress HENMT: Head: normal to inspection Face and sinus: normal facial exam Mouth: Yes Normal oral and palatal mucosa present Eyes: General: appearance normal, both eyes and all related structures Pupils: Equal, round and reactive pupils present Neck: Neck: supple and no JVD Other: normal carotid upstrokes bilaterally Resp: Effort & Inspection: normal respiratory effort Auscultation: clear to auscultation bilaterally Cardio: Rate: regular rate Rhythm: regular rhythm Heart sounds: no murmurs GI: Auscultation: normal bowel sounds Skin: General skin exam: normal color Wounds: no wounds noted Neuro: Cranial nerves: Yes Equal, round and reactive pupils present and Yes Normal hearing present Cognition (Neuro): normal cognition Extrem: General: normal to inspection, no edema and no pedal edema Psych: Mental Status: mental status grossly normal Objective Data Vital Signs Vital Signs: Vital Signs - 24 hr 06/29/21 19:17 06/29/21 20:00 06/30/21 00:00 Temperature 36.6 C Pulse Rate 66 73 61 Respiratory Rate 18 Blood Pressure 147/79 H Pulse Oximetry 97 06/30/21 04:22 06/30/21 05:58 06/30/21 08:00 Temperature 36.1 C L Pulse Rate 64 68 67 Respiratory Rate 18 Blood Pressure 149/88 H Pulse Oximetry 97 06/30/21 08:22 06/30/21 10:35 06/30/21 12:00 Temperature Pulse Rate 95
== END 2021-06-30 13:30 | disposition home or self-care (01) ==
LOC: ANHED 10:20 → ANH3MED 14:46
PROVIDERS: Physician Assistant; Admitting Provider Internal Medicine; Emergency Provider Emergency Medicine; PCP Internal Medicine; Visit Provider Family Medicine
DX: R07.9 Chest pain, unspecified (principal); K21.9 Gastro-esophageal reflux disease without esophagitis; E78.5 Hyperlipidemia, unspecified; I10 Essential (primary) hypertension; E03.9 Hypothyroidism, unspecified; Z87.891 Personal history of nicotine dependence
CPT/HCPCS: 36415; 71046; 71275; 78452; 80048; 80053; 83690; 83735; 84443; 84484; 85025; 85610; 85730; 93005; 93017; 99285; A9270; A9502; G0378; J2785; Q9967

== ENCOUNTER 2022-03-14 13:59 | Outpatient (CLI) | payer MEDICARE, SELFPAY ==
--- NOTE | ~2022-03-14 | MM_ITS ---
EXAMINATION: MM screening [facility] BI w estefania HISTORY: Screening mammogram TECHNIQUE: Craniocaudal and mediolateral oblique 3-D tomosynthesis images were obtained and synthetic 2-D images were generated. CAD analysis was submitted and interpreted. COMPARISON: 10/20/2020 bilateral screening mammogram 06/03/2017 diagnostic BREAST PARENCHYMAL COMPOSITION: There are scattered areas of fibroglandular density. FINDINGS: Occasional benign calcifications. Stable approximately 8.5 mm circumscribed low-density [place] consistent with cyst in the posterior outer mid left breast. Similar circumscribed low density 7 .5 mm probable cyst in the mid inner right breast. There are is no evidence of suspicious mass, calcification, or architectural distortion to suggest ma lignancy in either breast. There has been no suspicious interval change. IMPRESSION: 1. No mammographic evidence of malignancy. 2. Recommend routine screening mammography in one year. BI-RADS Category 2: Benign finding(s). Reviewed, dictated and finalized at location A. OPERATOR
== END 2022-03-14 14:00 | disposition home or self-care (01) ==
LOC: ANHIMG 14:02
PROVIDERS: PCP Internal Medicine; Visit Provider Obstetrics & Gynecology
DX: Z12.31 Encounter for screening mammogram for malignant neoplasm of breast (principal)
CPT/HCPCS: 77063; 77067

== ENCOUNTER 2024-07-07 11:59 | Outpatient (CLI) | payer MEDICARE, SELFPAY ==
--- NOTE | ~2024-07-07 | MM_ITS ---
EXAMINATION: MM screening [facility] BI w estefania HISTORY: Screening TECHNIQUE: Craniocaudal and mediolateral oblique 3-D tomosynthesis images were obtained and synthetic 2-D images were generated. CAD analysis was submitted and interpreted. COMPARISON: Comparison to multiple prior studies sequentially, with oldest reviewed study dated 06/30. BREAST PARENCHYMAL COMPOSITION: Not dense: There are scattered areas of fibroglandular density. FINDINGS: There are scattered bilateral obscured breast masses. There is no evidence of suspicious ma ss, calcification, or architectural distortion to suggest malignancy in either breast. There has been no suspicious interval change. There are benign bilateral breast calcifications. No architectural di stortion. IMPRESSION: 1. Small scattered bilateral obscured breast masses. 2. Additional mammographic views and possible breast ultrasound are recommended. BI-RADS Category 0: Incomplete: Needs additional imaging evaluation. Reviewed, dictated and finalized at location A. IMPRESSION: 1. Small scattered bilateral obscured breast masses. 2. Additional mammographic views and possible breast ultrasound are recommended . BI-RADS Category 0: Incomplete: Needs additional imaging evaluation.
== END 2024-07-07 12:00 | disposition home or self-care (01) ==
LOC: MICIMG 12:03
PROVIDERS: PCP Student in an Organized Health Care Education/Training Program; Visit Provider Student in an Organized Health Care Education/Training Program
DX: Z12.31 Encounter for screening mammogram for malignant neoplasm of breast (principal); R92.8 Other abnormal and inconclusive findings on diagnostic imaging of breast
CPT/HCPCS: 77063; 77067

== ENCOUNTER 2024-08-03 07:26 | Outpatient (CLI) | payer MEDICARE, SELFPAY ==
--- NOTE | ~2024-08-03 | MMUS_ITS ---
EXAMINATION: MM diagnostic [facility] BI w estefania, US breast BI complete HISTORY: Abnormal mammogram. TECHNIQUE: Additional 3-D tomosynthesis images of the breasts were performed and synthetic 2-D images were generated. CAD analysis was submitted and interpreted. High resolution bilateral complete breas t ultrasound was performed. COMPARISON: Comparison to multiple prior studies sequentially, with oldest reviewed study dated 06/30. BREAST PARENCHYMAL COMPOSITION: Dense: The breasts are heterogeneously dense, which may obscure small masses FINDINGS: MAMMOGRAPHIC FINDINGS: There are clustered nodules medially in the right breast. There is a cluster of masses in the lower i nner quadrant and also in the mid central aspect of the right breast, middle third. Clustered nodules in the subareolar location of the left breast are less apparent with spot compression views. Additio christiano asymmetries in the upper outer quadrant of the left breast are less apparent, likely superimpos ed fibroglandular tissue. ULTRASOUND: Complete US of all 4 quadrants of the breast/s and retroareolar region was reviewed. Right breast: At 2:00, near the areola there is a 9 mm cyst. At 6:00 there is a cluster of microcysts . At 10:00, 5 cm from the nipple there is a 7 mm cyst. Left breast: There are mildly dilated subareolar ducts of the left breast. No suspicious masses in ei ther breast to suggest malignancy. IMPRESSION: 1. No evidence for malignancy in either breast. Benign findings. 2. Routine yearly screening mammogram and regular clinical breast examination are recommended. BI-RADS Category 2: Benign finding(s). Reviewed, dictated and finalized at location A. IMPRESSION: 1. No evidence for malignancy in either breast. Benign findings. 2. Routine yearly screening mammogram and regular clinical breast examination a re recommended. BI-RADS Category 2: Benign finding(s).
== END 2024-08-03 07:27 | disposition home or self-care (01) ==
LOC: MICIMG 07:27
PROVIDERS: PCP Student in an Organized Health Care Education/Training Program; Visit Provider Student in an Organized Health Care Education/Training Program
DX: R92.8 Other abnormal and inconclusive findings on diagnostic imaging of breast (principal)
CPT/HCPCS: 76641; 77062; 77066; G0279

== ENCOUNTER 2025-02-23 13:30 | Outpatient (CLI) | payer MEDICARE, SELFPAY ==
--- NOTE | ~2025-02-23 | DEXA_ITS ---
Bone Density Report Name: VALARIE GIRON Age: 69 Sex: Female Ethnicity: White Date of : 1955 Indication: osteopenia; rheumatoid arthritis; Referring Provider: MADELYN, MAITE Sutherland Study: Bone densitometry was performed. Exam Date: February 23, 2025 Accession number: [id number] Bone Density: Region BMD T-score Z-score Classification AP Spine(L1-L4) 0.810 -2.2 -0.1 Osteopenia Femoral Neck (Left) 0.716 -1.2 0.6 Osteopenia Total Hip (Left) 0.883 -0.5 1.0 Normal Femoral Neck (Right) 0.671 -1.6 0.2 Osteopenia Total Hip (Right) 0.895 -0.4 1.1 Normal Total Hip Mean 0.889 -0.5 1.1 Normal World Health Organization criteria for BMD impression classify patients as: Normal (T-score at or above -1.0), Osteopenia (T-score between -1.0 and -2.5), or Osteoporosis (T-score at or below -2.5). 10-year Fracture Risk(1): Major Osteoporotic Fracture 13% Hip Fracture 2.0% Reported Risk Factors: [place] (), Neck BMD=0.671, BMI=31.2, rheumatoid arthritis (1) FRAX(R) Version 3.08. Fracture probability calculated for an untreated patient. Fracture probability may be lower if the patient has received treatment. Previous Exams: -- Region Exam Age BMD T-score BMD Change BMD Change Date g/cm2 vs Baseline vs Previous -- AP Spine (L1-L4) 02/23/2025 69 0.810 -2.2 -12.7%* -12.7%* 10/20/2020 65 0.928 -1.1 Total Hip(Left) 02/23/2025 69 0.883 -0.5 -8.6%* -8.6%* 10/20/2020 65 0.966 0.2 Total Hip(Right) 02/23/2025 69 0.895 -0.4 -5.4%* -5.4%* 10/20/2020 65 0.946 0.0 -- *Denotes significance at 95% confidence level, LSC for AP Spine = 0.022 g/cm2, LSC for Total Hip = 0.027 g/cm2 Clinical Information Provided by Patient: Has rheumatoid arthritis Has used the following medications: Vitamin D, Calcium Patient maximum height was 63 Menopause Age: 35 No regular weight bearing exercise Drinks caffeinated beverages Onset of menses at age 16 Number of children 2 Impression: The patient has low bone mass, based on the Total Spine T-score. The patient has an estimated ten-year risk of hip fracture of 2% and an estimated ten-year risk of major fracture of 13%, based on the WHO FRAX algorithm. The BMD for the AP Spine (L1-L4) decreased, changing by -12.7% since the last DXA exam. The BMD for the Total Hip(Left) decreased, changing by -8.6% since the last DXA exam. The BMD for the Total Hip(Right) decreased, changing by -5.4% since the last DXA exam. Discussion: BONE DENSITY IS LOW AT ONE OR MORE SKELETAL SITES. This patient's lowest T-score is low at one or more skeletal sites. It meets the World Health Organization's (WHO) criteria for ?low bone mass? (T-score between -1.0 and -2.5). The patient's 10-year risk of fracture as calculated by FRAX is less than the threshold where pharmacological therapy is recommended by the National Osteoporosis Foundation (NOF). However, all treatment decisions require clinical judgment and consideration of individual patient factors, including patient preferences, comorbidities, previous drug use, risk factors not captured in the FRAX model (e.g., frailty, falls, vitamin D deficiency, increased bone turnover, interval significant decline in bone density) and possible under or overestimation of fracture risk by FRAX. The patient should follow a healthful lifestyle (good nutrition with adequate calcium and vitamin D, and appropriate weight-bearing exercise). Follow-Up: Consider repeating this study in 2 years to reassess this patient's status, or sooner if there is some new clinical indication. Reported by: BRONSON on 02/23/2025 2:07:00 PM. Reviewed, dictated and finalized at location A.
== END 2025-02-23 13:31 | disposition home or self-care (01) ==
LOC: MICIMG 13:31
PROVIDERS: PCP Student in an Organized Health Care Education/Training Program; Visit Provider Student in an Organized Health Care Education/Training Program
DX: M85.89 Other specified disorders of bone density and structure, multiple sites (principal); Z78.0 Asymptomatic menopausal state
CPT/HCPCS: 77080